=== PATIENT | female | born 1960 | race Two or more races ===

== ENCOUNTER 2024-02-01 12:23 | Outpatient (CLI) | payer OTHER | END 2024-02-01 12:37 | disposition home or self-care (01) | LOC: MAMO-SONO 12:23 | PROVIDERS: ATTEND Obstetrics & Gynecology | DX: N60.11 Diffuse cystic mastopathy of right breast (principal); N60.12 Diffuse cystic mastopathy of left breast; Z12.31 Encounter for screening mammogram for malignant neoplasm of breast ==

== ENCOUNTER 2024-03-01 10:05 | Outpatient (CLI) | payer OTHER | END 2024-03-01 10:11 | disposition home or self-care (01) | LOC: SONOGRAMA 10:05 | PROVIDERS: ATTEND Obstetrics & Gynecology | DX: N94.4 Primary dysmenorrhea (principal) ==

== ENCOUNTER 2024-03-13 09:28 | Outpatient (CLI) | payer OTHER | END 2024-03-13 09:29 | disposition home or self-care (01) | LOC: NUCLEAR 09:28 | PROVIDERS: ATTEND Obstetrics & Gynecology | DX: M81.0 Age-related osteoporosis without current pathological fracture (principal); M85.80 Other specified disorders of bone density and structure, unspecified site ==